=== PATIENT | female | born 1970 ===

== ENCOUNTER 2017-09-27 20:51 | Emergency (ER) | payer MEDICAID ==
[~2017-09-27] VITALS: Ht 172.7 cm; Wt 65.8 kg
--- NOTE | 2017-09-27 21:03 | NUR ---
Dr. Peter at bedside for MSE.
--- NOTE | 2017-09-27 21:10 | NUR ---
Xray at bedside.
[2017-09-27] MEDS ORDERED: IBUPROFEN 600 MG TABLET ONE (21:11)
[2017-09-27] MEDS ORDERED: IBUPROFEN 600 MG TABLET PO ONE (21:15)
--- NOTE | 2017-09-27 21:29 | NUR ---
Patient discharged to home in stable conditon. Written and verbal after care instructions given. Patient verbalizes understanding of instructions. Pt ambulated out of ER, supported by , no falls noted, no acute signs of distress, VSS, all belongings taken.
[2017-09-27 21:30] VITALS: BP 109/61
[2017-09-27] MEDS ORDERED: LIDOCAINE HCL 2% 20 ML VIAL TP ONE (21:30)
== END 2017-09-27 21:30 | disposition home or self-care (01) ==
LOC: ER 20:54
DX: S92.512A Displaced fracture of proximal phalanx of left lesser toe(s), initial encounter for closed fracture (principal); Z88.5 Allergy status to narcotic agent; W22.8XXA Striking against or struck by other objects, initial encounter; Y93.89 Activity, other specified; Y92.89 Other specified places as the place of occurrence of the external cause; Y99.8 Other external cause status
CPT/HCPCS: 73630; A4663